=== PATIENT | male | born 1995 | race African-American/Black ===

== ENCOUNTER 2024-06-17 17:30 | Emergency (ER) | payer SELFPAY ==
[~2024-06-17] VITALS: Ht 172.7 cm; Wt 73.0 kg
[2024-06-17 17:38] VITALS: O2SAT 99
[2024-06-17] MEDS: ACETAMINOPHEN 325MG TABLET PO ONE (18:35)
[2024-06-17] MEDS: TETANUS, DIPHTHERIA, PERTUSSIS VAC/PF 0.5ML (>10YR OLD) IM ONE (20:34)
[2024-06-17 20:35] VITALS: BP 129/68; PULSE 100; RESP 18; TEMP 36.89184; O2SAT 96
== END 2024-06-17 20:40 ==
LOC: ER 17:30
DX: S01.01XA Laceration without foreign body of scalp, initial encounter (principal); G89.11 Acute pain due to trauma; V89.2XXA Person injured in unspecified motor-vehicle accident, traffic, initial encounter; Y93.89 Activity, other specified; Y92.89 Other specified places as the place of occurrence of the external cause; Y99.8 Other external cause status
CPT/HCPCS: 36415; 80320; 90471; 90715; 99285; G0480